=== PATIENT | female | born 2000 | race Caucasian/White ===

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

== ENCOUNTER 2022-04-05 10:27 | Emergency (ER) | payer OTHER ==
[2022-04-05 11:13] VITALS: BP 120/84; RESP 19; TEMP 99.8; BMI 29.2
[2022-04-05] MEDS ORDERED: ACETAMINOPHEN 1000 MG/100 ML BAG IVPB ONE (12:06)
[2022-04-05] MEDS ORDERED: SODIUM CHLORIDE 0.9% 500 ML INFUS.BAG IV ONE (12:06)
[2022-04-05] MEDS ORDERED: methylPREDNISolone NA SUCC 125 MG/2 ML VIAL IVPUSH ONE (12:08)
[2022-04-05] MEDS ORDERED: ACETAMINOPHEN INJECTION 100 ML IVPB ONE (12:11)
[2022-04-05] MEDS ORDERED: methylPREDNISolone NA SUCC 125 MG/2 ML VIAL ONE (12:20)
[2022-04-05 12:42] LABS: BASO % 0.4 % (0-2.0); EOS % 2.7 % (0-4.5); HEMATOCRIT 43.5 % (32.4-45.2); HEMOGLOBIN 15.3 GM/dL (10.7-15.3); LYMPH % 8.4 % (8-40); MCH 29.4 pg (25.7-33.7); MCHC 35.1 g/dl (32.0-36.0); MEAN CELL VOLUME 83.9 fl (80-96); MEAN PLT VOLUME 8.5 fl (7.5-11.1); MONO % 6.7 % (3.8-10.2); NEUT % 81.8 % (42.8-82.8); PLATELET COUNT 303 10^3/uL (134-434); RBC 5.19 M/mm3 (3.60-5.2); RDW 13.5 % (11.6-15.6); WHITE BLOOD COUNT 10.9 K/mm3 (4.0-10.0)
[2022-04-05 12:55] LABS: CALCIUM 9.8 mg/dL (8.5-10.1)
[2022-04-05 12:56] LABS: ALBUMIN 4.6 g/dl (3.4-5.0); BLOOD UREA NITROGEN 10.1 mg/dL (7-18)
[2022-04-05 12:59] LABS: CREATININE 0.7 mg/dL (0.55-1.3)
[2022-04-05 13:00] LABS: TOT PROT 8.8 g/dl (6.4-8.2)
[2022-04-05 13:01] LABS: BILIRUBIN,TOTAL 0.8 mg/dL (0.2-1)
[2022-04-05] MEDS ORDERED: ALBUTEROL SO4 0.083% IH SOL 2.5 MG/3 ML VIAL.NEB. NEB ONE (14:10)
[2022-04-05] MEDS ORDERED: ALBUTEROL SO4 2.5/IPRATROPIUM 0.5 INH SOL 3 ML VIAL.NEB. NEB ONE (14:18)
[2022-04-05 14:43] VITALS: PULSE 92
== END 2022-04-05 14:36 | disposition home or self-care (01) ==
LOC: JER 10:27
PROC: 3E033GC Introduction of Other Therapeutic Substance into Peripheral Vein, Percutaneous Approach (ICD-10-PCS; principal; 2022-04-05)
PROC: 3E0F7GC Introduction of Other Therapeutic Substance into Respiratory Tract, Via Natural or Artificial Opening (ICD-10-PCS; 2022-04-05)
DX: J21.0 Acute bronchiolitis due to respiratory syncytial virus (principal)
CPT/HCPCS: 0241U-QW; 36415; 71046-TC-FY; 80053; 84703; 85025; 85379; 93005; 93010; 99285-25

== ENCOUNTER 2022-07-26 23:45 | Inpatient (IN) | payer OTHER ==
[2022-07-26] MEDS: ALBUTEROL SO4 2.5/IPRATROPIUM 0.5 INH SOL 3 ML VIAL.NEB. NEB SCH (23:50)
[2022-07-26] MEDS ORDERED: ALBUTEROL SO4 2.5/IPRATROPIUM 0.5 INH SOL 3 ML VIAL.NEB. NEB ONE (23:58)
[2022-07-26] MEDS ORDERED: MAGNESIUM SULFATE IN WATER 2 GM/50 ML IVPB IVPB ONE (23:58)
[2022-07-26] MEDS ORDERED: DEXAMETHASONE SOD PHOSPHATE 10 MG/1 ML VIAL ONE (23:58)
[2022-07-27] MEDS ORDERED: MAGNESIUM SULF 50% (8.12 MEQ/2 ML-1 GM VIAL) IVPB ONE ×2 (00:05→07:32)
[2022-07-27] MEDS: ALBUTEROL SO4 2.5/IPRATROPIUM 0.5 INH SOL 3 ML VIAL.NEB. NEB SCH ×10 (00:05→23:30)
[2022-07-27] MEDS ORDERED: DEXAMETHASONE SOD PHOSPHATE 10 MG/1 ML VIAL IM ONE (00:05)
[2022-07-27] MEDS ORDERED: ONDANSETRON 4 MG/2 ML VIAL IVPUSH ONE (00:06)
[2022-07-27] MEDS ORDERED: ONDANSETRON 4 MG/2 ML VIAL ONE (00:07)
[2022-07-27] MEDS ORDERED: RACEPINEPHRINE IH SOL 2.25% 11.25 MG/0.5 ML VIAL NEB ONE (00:15)
[2022-07-27] MEDS ORDERED: ROCURONIUM BROMIDE 50 MG/5 ML VIAL IV ONE (00:20)
[2022-07-27] MEDS ORDERED: ACETAMINOPHEN 1000 MG/100 ML BAG IVPB ONE (00:20)
[2022-07-27] MEDS ORDERED: KETAMINE HCL 200 MG/20 ML VIAL IVPUSH ONE (00:20)
[2022-07-27] MEDS ORDERED: KETAMINE HCL 500 MG/10 ML VIAL ONE (00:21)
[2022-07-27] MEDS ORDERED: ROCURONIUM BROMIDE 50 MG/5 ML SYRINGE ONE ×2 (00:21)
[2022-07-27] MEDS ORDERED: ACETAMINOPHEN INJECTION 100 ML IVPB ONE (00:25)
[2022-07-27] MEDS ORDERED: BENZOIN/ALOE VERA/STORAX/TOLU 58 ML BOTTLE ONE (00:25)
[2022-07-27] MEDS: BENZOCAINE/MENTH/CETYLPYRD CL 1 EACH LOZENGE MM PRN (00:50)
[2022-07-27 00:54] LABS: VENOUS BASE EXCESS -2.2 mmol/L (-2-2); VENOUS O2 SATURATION 69.1 % (70-80); VENOUS PH 7.347 (7.310-7.410)
[2022-07-27] MEDS ORDERED: BENZOCAINE/MENTH/CETYLPYRD CL 1 EACH LOZENGE MM ONE (00:56)
[2022-07-27 01:06] LABS: BASO % 0.4 % (0-2.0); EOS % 3.7 % (0-4.5); HEMATOCRIT 41.8 % (32.4-45.2); HEMOGLOBIN 14.2 GM/dL (10.7-15.3); LYMPH % 7.5 % (8-40); MCH 28.6 pg (25.7-33.7); MCHC 33.9 g/dl (32.0-36.0); MEAN CELL VOLUME 84.2 fl (80-96); MEAN PLT VOLUME 9.1 fl (7.5-11.1); MONO % 4.9 % (3.8-10.2); NEUT % 83.5 % (42.8-82.8); PLATELET COUNT 282 10^3/uL (134-434); RBC 4.96 M/mm3 (3.60-5.2); RDW 13.7 % (11.6-15.6); WHITE BLOOD COUNT 14.9 K/mm3 (4.0-10.0)
[2022-07-27 01:36] LABS: CALCIUM 9.5 mg/dL (8.5-10.1)
[2022-07-27 01:37] LABS: ALBUMIN 4.5 g/dl (3.4-5.0); BLOOD UREA NITROGEN 8.8 mg/dL (7-18)
[2022-07-27 01:40] LABS: CREATININE 0.6 mg/dL (0.55-1.3)
[2022-07-27 01:41] LABS: BILIRUBIN,TOTAL 1.1 mg/dL (0.2-1); TOT PROT 8.4 g/dl (6.4-8.2)
[2022-07-27 01:57] LABS: LACTIC ACID 2.2 mmol/L (0.4-2.0)
[2022-07-27] MEDS ORDERED: ALBUTEROL SO4 0.083% IH SOL 2.5 MG/3 ML VIAL.NEB. NEB ONE ×2 (07:10→07:13)
[2022-07-27] MEDS ORDERED: ALBUTEROL SO4 2.5/IPRATROPIUM 0.5 INH SOL 3 ML VIAL.NEB. NEB ONE ×2 (07:36→17:35)
[2022-07-27] MEDS ORDERED: MAGNESIUM SULFATE IN WATER 2 GM/50 ML IVPB IVPB ONE (07:36)
[2022-07-27] MEDS ORDERED: guaiFENesin 200 MG/10 ML 10 ML UNIT-DOSE CUPS PO PRN (08:47)
[2022-07-27] MEDS ORDERED: ONDANSETRON 4 MG/2 ML VIAL IVPUSH PRN (08:47)
[2022-07-27] MEDS ORDERED: ACETAMINOPHEN 325 MG TABLET (FP) PO PRN (08:47)
[2022-07-27] MEDS ORDERED: ALBUTEROL SO4 2.5/IPRATROPIUM 0.5 INH SOL 3 ML VIAL.NEB. NEB PRN (08:47)
[2022-07-27] MEDS ORDERED: methylPREDNISolone NA SUCC 40 MG/1 ML VIAL IVPUSH SCH (09:00)
[2022-07-27] MEDS: ENOXAPARIN NA (PORCINE) 40 MG/0.4 ML DISP.SYRIN SQ SCH (09:28)
[2022-07-27] MEDS: ALBUTEROL SO4 0.083% IH SOL 2.5 MG/3 ML VIAL.NEB. NEB SCH ×4 (09:28→10:56)
[2022-07-27] MEDS ORDERED: ACETAMINOPHEN 1000 MG/100 ML BAG IVPB PRN (16:45)
[2022-07-27] MEDS ORDERED: ACETAMINOPHEN 325 MG TABLET (FP) ONE (17:27)
[2022-07-27] MEDS ORDERED: methylPREDNISolone NA SUCC 40 MG/1 ML VIAL ONE (17:27)
[2022-07-27] MEDS ORDERED: ALBUTEROL SO4 0.5 % INH SOLN 2.5 MG/0.5 ML VIAL.NEB. NEB ONE (17:35)
[2022-07-27] MEDS ORDERED: IPRATROPIUM BR 0.02% 0.5 MG/2.5 ML VIAL.NEB. NEB ONE (17:36)
[2022-07-27] MEDS: methylPREDNISolone NA SUCC 40 MG/1 ML VIAL IVPUSH SCH (18:48)
[2022-07-28] MEDS ORDERED: methylPREDNISolone NA SUCC 40 MG/1 ML VIAL ONE (01:29)
[2022-07-28] MEDS: methylPREDNISolone NA SUCC 40 MG/1 ML VIAL IVPUSH SCH ×3 (02:32→18:23)
[2022-07-28] MEDS ORDERED: ALBUTEROL SO4 2.5/IPRATROPIUM 0.5 INH SOL 3 ML VIAL.NEB. NEB ONE ×2 (03:30→04:26)
[2022-07-28] MEDS ORDERED: guaiFENesin 200 MG/10 ML 10 ML UNIT-DOSE CUPS ONE (03:41)
[2022-07-28] MEDS ORDERED: BENZOCAINE/MENTH/CETYLPYRD CL 1 EACH LOZENGE MM ONE (03:42)
[2022-07-28] MEDS: BENZOCAINE/MENTH/CETYLPYRD CL 1 EACH LOZENGE MM PRN (03:47)
[2022-07-28] MEDS: ALBUTEROL SO4 2.5/IPRATROPIUM 0.5 INH SOL 3 ML VIAL.NEB. NEB SCH (04:38)
[2022-07-28 07:24] LABS: ALBUMIN 4.3 g/dl (3.4-5.0); BLOOD UREA NITROGEN 14.6 mg/dL (7-18); CALCIUM 9.7 mg/dL (8.5-10.1)
[2022-07-28 07:27] LABS: CREATININE 0.6 mg/dL (0.55-1.3)
[2022-07-28 07:29] LABS: HEMATOCRIT 39.7 % (32.4-45.2); HEMOGLOBIN 13.1 GM/dL (10.7-15.3); MCH 27.9 pg (25.7-33.7); MEAN CELL VOLUME 84.6 fl (80-96); MEAN PLT VOLUME 9.5 fl (7.5-11.1); PLATELET COUNT 312 10^3/uL (134-434); RBC 4.69 M/mm3 (3.60-5.2); RDW 13.7 % (11.6-15.6); TOT PROT 8.5 g/dl (6.4-8.2); WHITE BLOOD COUNT 12.8 K/mm3 (4.0-10.0)
[2022-07-28 09:04] LABS: ANISOCYTOSIS 1+; MACROCYTOSIS 0
[2022-07-28] MEDS ORDERED: ENOXAPARIN NA (PORCINE) 40 MG/0.4 ML DISP.SYRIN SQ ONE (10:03)
[2022-07-28] MEDS ORDERED: HYDROCORTISONE SOD SUCCINATE 100 MG/2 ML VIAL ONE (10:03)
[2022-07-28] MEDS: ENOXAPARIN NA (PORCINE) 40 MG/0.4 ML DISP.SYRIN SQ SCH (10:04)
[2022-07-28] MEDS ORDERED: ALBUTEROL SO4 2.5/IPRATROPIUM 0.5 INH SOL 3 ML VIAL.NEB. NEB SCH ×2 (16:00)
[2022-07-28 17:13] VITALS: BMI 29.1
[2022-07-28] MEDS: BUDESONIDE/FORMETEROL FUMARATE 160/4.5 mcg INHALER IH SCH (21:31)
[2022-07-29] MEDS: methylPREDNISolone NA SUCC 40 MG/1 ML VIAL IVPUSH SCH (02:15)
[2022-07-29] MEDS ORDERED: methylPREDNISolone NA SUCC 40 MG/1 ML VIAL IVPUSH SCH ×2 (07:45→08:00)
[2022-07-29] MEDS ORDERED: ALBUTEROL SO4 HFA INHALER IH PRN (07:46)
[2022-07-29 08:41] LABS: HEMATOCRIT 41.7 % (32.4-45.2); LYMPH % 8.7 % (8-40); MCH 28.5 pg (25.7-33.7); MCHC 33.6 g/dl (32.0-36.0); MEAN CELL VOLUME 84.9 fl (80-96); MEAN PLT VOLUME 9.1 fl (7.5-11.1); MONO % 2.5 % (3.8-10.2); NEUT % 88.8 % (42.8-82.8); PLATELET COUNT 349 10^3/uL (134-434); RBC 4.91 M/mm3 (3.60-5.2); RDW 13.7 % (11.6-15.6); WHITE BLOOD COUNT 10.4 K/mm3 (4.0-10.0)
[2022-07-29 09:01] LABS: CALCIUM 9.8 mg/dL (8.5-10.1); MAGNESIUM 2.5 mg/dL (1.8-2.4)
[2022-07-29 09:02] LABS: BLOOD UREA NITROGEN 23.2 mg/dL (7-18)
[2022-07-29 09:05] LABS: CREATININE 0.6 mg/dL (0.55-1.3)
[2022-07-29] MEDS: BUDESONIDE/FORMETEROL FUMARATE 160/4.5 mcg INHALER IH SCH (09:21)
[2022-07-29] MEDS: ENOXAPARIN NA (PORCINE) 40 MG/0.4 ML DISP.SYRIN SQ SCH (09:21)
[2022-07-29 13:29] VITALS: BP 145/86; PULSE 89; RESP 20; TEMP 99.3
[2022-07-29] MEDS ORDERED: MONTELUKAST NA 5 MG TAB.CHEW PO SCH (22:00)
== END 2022-07-29 18:19 | disposition home or self-care (01) | DRG 133 ==
LOC: JER 23:45 → JERBED 07-27 09:01 → J7W 07-28 16:05
PROVIDERS: ADMIT Internal Medicine; ATTEND Internal Medicine
DX: J96.01 Acute respiratory failure with hypoxia (principal); J45.901 Unspecified asthma with (acute) exacerbation; R77.8 Other specified abnormalities of plasma proteins; J06.9 Acute upper respiratory infection, unspecified; F17.210 Nicotine dependence, cigarettes, uncomplicated; R79.89 Other specified abnormal findings of blood chemistry
CPT/HCPCS: 0241U-QW; 36415; 71045-TC-FY; 71275-TC; 80048; 80053; 82803; 83605; 83735; 84703; 85025; 85379; 87040; 93005; 93010; 94150; 94640; 99285-25; J1100; Q9967

== ENCOUNTER 2022-10-07 19:45 | Emergency (ER) | payer OTHER ==
[2022-10-07 19:49] VITALS: BP 128/85; PULSE 90; RESP 18; TEMP 98; BMI 29.2
[2022-10-07] MEDS ORDERED: predniSONE 20 MG TABLET (UD) PO ONE (20:48)
[2022-10-07] MEDS ORDERED: predniSONE 20 MG TABLET (UD) ONE (20:50)
[2022-10-07] MEDS ORDERED: ALBUTEROL SO4 2.5/IPRATROPIUM 0.5 INH SOL 3 ML VIAL.NEB. NEB ONE (20:50)
[2022-10-07] MEDS: ALBUTEROL SO4 2.5/IPRATROPIUM 0.5 INH SOL 3 ML VIAL.NEB. NEB SCH ×2 (20:59→21:03)
== END 2022-10-07 22:01 | disposition home or self-care (01) ==
LOC: JERFT 19:45
PROC: 3E0F7GC Introduction of Other Therapeutic Substance into Respiratory Tract, Via Natural or Artificial Opening (ICD-10-PCS; principal; 2022-10-07)
DX: J45.21 Mild intermittent asthma with (acute) exacerbation (principal)
CPT/HCPCS: 99284-25

== ENCOUNTER 2023-02-19 09:23 | Emergency (ER) | payer OTHER ==
[2023-02-19 09:27] VITALS: BP 127/85; PULSE 75; RESP 18; TEMP 98; BMI 30.9
[2023-02-19] MEDS ORDERED: ALBUTEROL SO4 2.5/IPRATROPIUM 0.5 INH SOL 3 ML VIAL.NEB. NEB ONE ×2 (09:55→11:16)
[2023-02-19] MEDS ORDERED: DEXAMETHASONE LIQUID 0.5 MG/5 ML PO ONE (09:55)
[2023-02-19] MEDS ORDERED: LORATADINE 10 MG TABLET PO ONE (09:56)
[2023-02-19] MEDS ORDERED: LORATADINE 10 MG TABLET ONE (11:16)
[2023-02-19] MEDS ORDERED: DEXAMETHASONE SOD PHOSPHATE 10 MG/1 ML VIAL ONE (11:17)
[2023-02-19 12:01] LABS: BASO % 0.9 % (0-2.0); EOS % 16.6 % (0-4.5); HEMATOCRIT 38.8 % (32.4-45.2); HEMOGLOBIN 13.3 GM/dL (10.7-15.3); LYMPH % 37.6 % (8-40); MCH 28.7 pg (25.7-33.7); MCHC 34.3 g/dl (32.0-36.0); MEAN CELL VOLUME 83.8 fl (80-96); MEAN PLT VOLUME 8.4 fl (7.5-11.1); MONO % 6.1 % (3.8-10.2); NEUT % 38.8 % (42.8-82.8); PLATELET COUNT 311 10^3/uL (134-434); RBC 4.63 M/mm3 (3.60-5.2); RDW 13.9 % (11.6-15.6); WHITE BLOOD COUNT 7.1 K/mm3 (4.0-10.0)
[2023-02-19 12:02] LABS: INR 0.9 (0.83-1.09); PROTHROMBIN TIME (PATIENT) 10.4 SEC (9.7-13.0)
[2023-02-19 12:04] LABS: ACTIVATED PTT 35.5 SECONDS (25.2-36.5)
[2023-02-19 12:08] LABS: POTASSIUM 4.4 mmol/L (3.5-5.1)
[2023-02-19 12:09] LABS: CALCIUM 9.6 mg/dL (8.5-10.1)
[2023-02-19 12:10] LABS: BLOOD UREA NITROGEN 12.3 mg/dL (7-18)
[2023-02-19 12:13] LABS: CREATININE 0.5 mg/dL (0.55-1.3)
== END 2023-02-19 13:09 | disposition home or self-care (01) ==
LOC: JER 09:23
PROC: 3E0F7GC Introduction of Other Therapeutic Substance into Respiratory Tract, Via Natural or Artificial Opening (ICD-10-PCS; principal; 2023-02-19)
DX: K92.0 Hematemesis (principal); R06.02 Shortness of breath; R05.9 Cough, unspecified; J45.901 Unspecified asthma with (acute) exacerbation; J30.89 Other allergic rhinitis
CPT/HCPCS: 0241U-QW; 36415; 71046-TC-FY; 80048; 84703; 85025; 85610; 85730; 99284-25

== ENCOUNTER 2023-03-20 08:58 | Emergency (ER) | payer OTHER ==
[2023-03-20 09:19] VITALS: BMI 28.9
[2023-03-20] MEDS ORDERED: DIPHTH,PERTUSS(ACELL),TET 0.5 ML DISP.SYRIN IM ONE ×2 (09:39→09:48)
[2023-03-20 09:40] VITALS: BP 121/80; PULSE 108; RESP 18; TEMP 98.3
== END 2023-03-20 10:31 | disposition home or self-care (01) ==
LOC: JER 08:58
PROC: 3E0234Z Introduction of Serum, Toxoid and Vaccine into Muscle, Percutaneous Approach (ICD-10-PCS; principal; 2023-03-20)
DX: S60.410A Abrasion of right index finger, initial encounter (principal); W26.0XXA Contact with knife, initial encounter; Y99.0 Civilian activity done for income or pay
CPT/HCPCS: 90471; 90715; 99282-25

== ENCOUNTER 2023-04-22 00:01 | Emergency (ER) | payer OTHER ==
[2023-04-22 00:14] VITALS: BP 118/81; PULSE 82; RESP 20; TEMP 98; BMI 29.2
[2023-04-22] MEDS: ALBUTEROL SO4 2.5/IPRATROPIUM 0.5 INH SOL 3 ML VIAL.NEB. NEB SCH ×2 (00:23→01:29)
[2023-04-22] MEDS ORDERED: DEXAMETHASONE SOD PHOSPHATE 10 MG/1 ML VIAL IM ONE (00:35)
[2023-04-22] MEDS ORDERED: DEXAMETHASONE SOD PHOSPHATE 10 MG/1 ML VIAL ONE (01:04)
[2023-04-22] MEDS ORDERED: FAMOTIDINE 20 MG TABLET ONE (01:07)
[2023-04-22] MEDS ORDERED: MAG HYDROX/AL HYDROX/SIMETH 30 ML UNIT-DOSE CUP ONE (01:07)
[2023-04-22] MEDS ORDERED: FAMOTIDINE 20 MG TABLET PO ONE (01:08)
[2023-04-22] MEDS ORDERED: MAG HYDROX/AL HYDROX/SIMETH 30 ML UNIT-DOSE CUP PO ONE (01:08)
== END 2023-04-22 05:04 | disposition home or self-care (01) ==
LOC: JER 00:01
PROC: 3E023GC Introduction of Other Therapeutic Substance into Muscle, Percutaneous Approach (ICD-10-PCS; principal; 2023-04-22)
PROC: 3E0F7GC Introduction of Other Therapeutic Substance into Respiratory Tract, Via Natural or Artificial Opening (ICD-10-PCS; 2023-04-22)
DX: R06.02 Shortness of breath (principal); R10.13 Epigastric pain; J45.901 Unspecified asthma with (acute) exacerbation; R10.11 Right upper quadrant pain
CPT/HCPCS: 71046-TC-FY; 76705-TC; 93005; 93010; 94640; 96372; 99285-25; J1100

== ENCOUNTER 2023-05-15 20:10 | Emergency (ER) | payer OTHER ==
[2023-05-15 20:21] VITALS: BP 125/81; PULSE 74; RESP 18; TEMP 9739; BMI 29.5
[2023-05-15] MEDS: ALBUTEROL SO4 2.5/IPRATROPIUM 0.5 INH SOL 3 ML VIAL.NEB. NEB SCH (21:48)
[2023-05-15] MEDS ORDERED: ALBUTEROL SO4 2.5/IPRATROPIUM 0.5 INH SOL 3 ML VIAL.NEB. NEB ONE (21:49)
== END 2023-05-15 22:32 | disposition home or self-care (01) ==
LOC: JERFT 20:10
PROC: 3E0F7GC Introduction of Other Therapeutic Substance into Respiratory Tract, Via Natural or Artificial Opening (ICD-10-PCS; principal; 2023-05-15)
DX: J45.909 Unspecified asthma, uncomplicated (principal); R05.9 Cough, unspecified; R06.02 Shortness of breath
CPT/HCPCS: 99283-25

== ENCOUNTER 2023-10-30 15:06 | Emergency (ER) | payer OTHER ==
[2023-10-30 15:11] VITALS: BP 123/79; PULSE 85; RESP 20; TEMP 97.8; BMI 30.8
== END 2023-10-30 16:00 | disposition home or self-care (01) ==
LOC: JERFT 15:06
DX: N64.4 Mastodynia (principal); S20.01XA Contusion of right breast, initial encounter; W50.0XXA Accidental hit or strike by another person, initial encounter; Y92.219 Unspecified school as the place of occurrence of the external cause; Y99.0 Civilian activity done for income or pay
CPT/HCPCS: 99282-25

== ENCOUNTER 2024-04-23 17:58 | Emergency (ER) | payer OTHER ==
[2024-04-23 18:06] VITALS: BP 135/82; PULSE 80; RESP 18; TEMP 98; BMI 31.1
[2024-04-23] MEDS ORDERED: ACETAMINOPHEN INJECTION 100 ML ONE (19:00)
[2024-04-23] MEDS ORDERED: ONDANSETRON 4 MG/2 ML VIAL ONE (19:04)
[2024-04-23] MEDS ORDERED: FAMOTIDINE 20 MG/50 ML IVPB 20 MG/50 ML MG IVPB ONE (19:05)
[2024-04-23 19:24] LABS: BASO % 0.6 % (0-2.0); EOS % 5.2 % (0-4.5); HEMATOCRIT 36.8 % (32.4-45.2); HEMOGLOBIN 12.4 GM/dL (10.7-15.3); LYMPH % 35.6 % (8-40); MCH 28.6 pg (25.7-33.7); MCHC 33.7 g/dl (32.0-36.0); MEAN PLT VOLUME 8.2 fl (7.5-11.1); MONO % 9.3 % (3.8-10.2); NEUT % 49.3 % (42.8-82.8); PLATELET COUNT 301 10^3/uL (134-434); RBC 4.33 M/mm3 (3.60-5.2); RDW 14.4 % (11.6-15.6); WHITE BLOOD COUNT 7.1 K/mm3 (4.0-10.0)
[2024-04-23] MEDS: SODIUM CHLORIDE 1,000 ML IV STA (19:30)
[2024-04-23] MEDS: ONDANSETRON 4 MG/2 ML VIAL IVPUSH ONE (19:31)
[2024-04-23] MEDS: ACETAMINOPHEN 1000 MG/100 ML BAG IVPB ONE (19:31)
[2024-04-23] MEDS: FAMOTIDINE 20 MG/50 ML IVPB 20 MG/50 ML MG IVPB ONE (19:31)
[2024-04-23 19:42] LABS: POTASSIUM 3.6 mmol/L (3.5-5.1)
[2024-04-23 19:44] LABS: ALBUMIN 4.1 g/dl (3.4-5.0); BLOOD UREA NITROGEN 8.6 mg/dL (7-18); CALCIUM 9.5 mg/dL (8.5-10.1)
[2024-04-23 19:47] LABS: CREATININE 0.7 mg/dL (0.55-1.3)
[2024-04-23 19:49] LABS: BILIRUBIN,TOTAL 0.3 mg/dL (0.2-1); TOT PROT 7.4 g/dl (6.4-8.2)
[2024-04-23 19:51] LABS: HCG,QUALITATIVE URINE Negative
[2024-04-23 20:07] LABS: EPI CELLS 11 /uL (0-25.1); HYALINE CASTS 0 /uL (0-3.1); URINE APPEARANCE CLEAR; URINE BACTERIA >9,000 /uL (0-1359); URINE BILIRUBIN NEGATIVE (NEGATIVE); URINE COLOR YELLOW; URINE GLUCOSE (UA) NEGATIVE (NEGATIVE); URINE KETONE NEGATIVE (NEGATIVE); URINE LEUK ESTERASE TRACE (NEGATIVE); URINE NITRITE POSITIVE (NEGATIVE); URINE PROTEIN NEGATIVE (NEGATIVE); URINE RBC 5 /uL (0-23.9); URINE UROBILINOGEN 0.2 mg/dL (0.2-1.0); URINE WBC 16 /uL (0-25.8)
[2024-04-23 21:12] LABS: HIV INTERPRETATION NEGATIVE (NEGATIVE)
== END 2024-04-23 22:19 | disposition home or self-care (01) ==
LOC: JER 17:58
PROC: 3E033GC Introduction of Other Therapeutic Substance into Peripheral Vein, Percutaneous Approach (ICD-10-PCS; principal; 2024-04-23)
PROC: 3E033GC Introduction of Other Therapeutic Substance into Peripheral Vein, Percutaneous Approach (ICD-10-PCS; 2024-04-23)
PROC: 3E033NZ Introduction of Analgesics, Hypnotics, Sedatives into Peripheral Vein, Percutaneous Approach (ICD-10-PCS; 2024-04-23)
DX: R11.2 Nausea with vomiting, unspecified (principal); R19.7 Diarrhea, unspecified; R50.9 Fever, unspecified; J02.9 Acute pharyngitis, unspecified; R10.13 Epigastric pain; Z20.822 Contact with and (suspected) exposure to COVID-19
CPT/HCPCS: 0241U-QW; 36415; 80053; 81003; 83690; 84703; 85025; 86803; 87086; 87186; 87389; 87651; 99284-25; J0131

== ENCOUNTER 2024-12-18 12:23 | Emergency (ER) | payer OTHER ==
[2024-12-18 12:30] VITALS: BP 126/93; PULSE 73; RESP 18; TEMP 98.6; BMI 29.0
[2024-12-18] MEDS ORDERED: FLUORESCEIN NA 1 EA STRIP ONE (12:46)
[2024-12-18] MEDS ORDERED: TETRACAINE 0.5% OPHTH SOLN 2 ML BOTTLE ONE (12:46)
[2024-12-18] MEDS: FLUORESCEIN NA 1 EA STRIP OS ONE (12:48)
[2024-12-18] MEDS: TETRACAINE 0.5% OPHTH SOLN 2 ML BOTTLE OS ONE (12:48)
== END 2024-12-18 16:21 | disposition home or self-care (01) ==
LOC: JER 12:23 → JERFT 12:23
DX: S00.12XA Contusion of left eyelid and periocular area, initial encounter (principal); S00.83XA Contusion of other part of head, initial encounter; W50.0XXA Accidental hit or strike by another person, initial encounter; Y99.0 Civilian activity done for income or pay
CPT/HCPCS: 70486-TC; 99284-25